=== PATIENT | male | born 1980 | race African-American/Black ===

== ENCOUNTER 2016-12-26 15:46 | Emergency (ER) | payer SELFPAY ==
[~2016-12-26] VITALS: Ht 190.5 cm; Wt 118.1 kg
[2016-12-26] MEDS ORDERED: ALPRAZolam 0.25 MG TABLET PO ONE (17:15)
[2016-12-26 17:21] VITALS: BP 146/97
--- NOTE | 2016-12-26 17:26 | PHYS DOC ---
General Chief Complaint: HYPERTENSION Stated Complaint: HIGH BP Time Seen by MD: 15:48 Source: patient Exam Limitations: no limitations Problems: History of Present Illness Initial Comments Patient is a 36-year-old male who comes to the ED complaining of headache and elevated blood pressure. Patient states that earlier today while talking to his mother on the phone he received bad news text message. The patient does not go into detail but he states this made him very anxious and his mother was trying to calm him down while he was talking with her. He states that he developed a headache and some tingling in his fingers and became concerned about his blood pressure. Patient states he has chronic headaches, he's had recent CT and says there is a " spot" at his right parietal area. He follows with Dr. Paul santos and states today was not the worst headache of his life. He denies any trauma after receiving bad news he said the headache was like a skull Mild to moderate no worsening or relieving factors. There was no photophobia or eye vision changes or focal neurologic deficit, no nausea vomiting or diarrhea. On ED arrival and his pressures are arranging 140s to 160s systolic and he still having intermittent fingers tingling and is hyperventilating and obviously anxious. Timing/Duration: 4-6 hours Severity: moderate Modifying Factors: improves with other Associated Symptoms: headaches, other Allergies: Coded Allergies: No Known Drug Allergies (Unverified , 12/30/13) Past Medical History Medical History: migraines Surgical History: noncontributory, other Family History Significant Family History: no pertinent family hx Social History Smoker: non-smoker Alcohol: none Drugs: none Review of Systems Constitutional: denies chills, denies diaphoresis, denies fever, denies malaise EENTM: denies eye pain, denies blurred vision, denies ear pain, denies nose pain, denies throat pain Respiratory: denies cough, denies shortness of breath, denies wheezing Cardiovascular: denies chest pain, denies palpitations, denies syncope Gastrointestinal: denies abdominal pain, denies nausea, denies vomiting Musculoskeletal: denies back pain, denies neck pain Psychiatric/Neurological: headache, denies numbness, denies paresthesia Hematologic/Lymphatic: denies blood clots, denies easy bleeding, denies easy bruising Physical Exam General Appearance: mild distress (anxious) Eyes: bilateral eye normal inspection, bilateral eye PERRL, bilateral eye EOMI Ear, Nose, Throat: hearing grossly normal, normal ENT inspection, normal pharynx Neck: non-tender, supple Respiratory: normal breath sounds, no respiratory distress Cardiovascular: normal peripheral pulses, regular rate, rhythm Gastrointestinal: non tender, soft Back: no CVA tenderness, no vertebral tenderness Extremities: non-tender, normal inspection Neurologic/Psychiatric: loop tender II-XII nml as tested, no motor/sensory deficits, alert, oriented x 3, other (anxious, cooperative,) Skin: normal color, warm/dry Orders, Labs, Meds I discussed the effects of stress on chronic conditions such as migraines. I discussed anxiety and the patient admits that he used to take Xanax but hasn't taken any in "years." Patient is agreeable to trial of Xanax to see if it resolves symptoms, if not further workup will be indicated. 1721: Patient rechecked, she denies any symptoms stating that the medications haven't worked fully. He has a ride home. I asked if she received was going to affect him in the days upcoming to see if her prescription would be required. Patient states that he is over he denies need for further medication treatment and is requesting discharge. No new or progressive symptoms vital signs are stable patient is asymptomatic and stable for discharge. Symptoms appear to be a combination effect of the patient's underlying anxiety and headaches as well as probable undiagnosed hypertension. The patient agrees to follow-up with his doctor for blood pressure check and further evaluation and treatment as deemed necessary. Departure Time of Disposition: 17:24 Disposition: HOME, SELF-CARE Diagnosis: headache, anxiety, elevated blood pressure Condition: IMPROVED Patient Instructions: Anxiety and Panic Attacks, Qgxx-hc-[id number], General Headache Without Cause, Zczt-in-Zgpt, Hypertension, Qadf-aw-Vfmr Additional Instructions: Rest, no driving or operating machinery tonight while under the influence of sedative medications. Off work tomorrow as needed. Aggressive hydration with Gatorade. Upza-dgl-[id number] Tylenol or ibuprofen as needed. Follow-up with your doctor on Friday for recheck and blood pressure evaluation. Return to ED with new or changing symptoms. PAIGE LEAHY DO Dec 26, 2016 17:26
== END 2016-12-26 17:41 | disposition home or self-care (01) ==
LOC: ER 15:46
DX: R20.0 Anesthesia of skin (principal); R51 Headache; I10 Essential (primary) hypertension; F41.9 Anxiety disorder, unspecified; G43.909 Migraine, unspecified, not intractable, without status migrainosus
CPT/HCPCS: 99283

== ENCOUNTER 2020-09-08 13:29 | Emergency (ER) | payer OTHER ==
[~2020-09-08] VITALS: Ht 190.5 cm; Wt 137.7 kg
[2020-09-08] MEDS ORDERED: diphenhydrAMINE 50 MG/ML VIAL IM ONE (14:15)
[2020-09-08] MEDS ORDERED: KETOROLAC 15 MG/ML VIAL. IM ONE (14:15)
[2020-09-08] MEDS ORDERED: ONDANSETRON ODT 4 MG TAB.RAPDIS PO ONE (14:15)
--- NOTE | 2020-09-08 14:29 | PHYS DOC ---
Past History Past Medical History: No Pertinent History (SHORTY PICKETT APRN) Past Surgical History: Other (SHORTY PICKETT APRN) Alcohol Use: None Drug Use: None (SHORTY PICKETT APRN) General Adult EDM: Chief Complaint: HEADACHE HPI: HPI: Patient is a 40-year-old male who presents with headache. Patient states the pain is worse above his right eye. Patient states he has a history of migraines but does not take any preventative medications. Patient states his first migraine he has had in a while. Patient denies visual changes. Denies taking anything prior to arrival for pain. Denies nausea/vomiting/diarrhea. Denies sensory changes or focal weakness. Patient has history of hypertension and migraines. (SHORTY PICKETT APRN) Review of Systems: Review of Systems: Constitutional: Denies fever or chills Eyes: Denies change in visual acuity HENT: Denies nasal congestion or sore throat Respiratory: Denies cough or shortness of breath Cardiovascular: Denies chest pain or edema GI: Denies abdominal pain, nausea, vomiting, bloody stools or diarrhea : Denies dysuria Musculoskeletal: Denies back pain or joint pain Integument: Denies rash Neurologic: Reports headache, denies focal weakness or sensory changes Endocrine: Denies polyuria or polydipsia Lymphatic: Denies swollen glands Psychiatric: Denies depression or anxiety (SHORTY PICKETT APRN) Current Medications: Current Meds: Current Medications Medications (Trade) Dose Ordered Sig/Merline Start Time Stop Time Status Last Admin Dose Admin Diphenhydramine HCl (Benadryl) 50 mg 1X ONCE 09/08/20 14:15 09/08/20 14:16 Ketorolac Tromethamine (Toradol 15mg Vial) 15 mg 1X ONCE 09/08/20 14:15 09/08/20 14:16 Ondansetron HCl (Zofran Odt) 4 mg 1X ONCE 09/08/20 14:15 09/08/20 14:16 (SHORTY PICKETT APRN) Allergies: Allergies: Allergies Coded Allergies Type Severity Reaction Last Updated Verified No Known Drug Allergies 12/30/13 No (SHORTY PICKETT APRN) Physical Exam: PE: Constitutional: Well developed, well nourished, no acute distress, non-toxic appearance. [] HENT: Normocephalic, atraumatic, bilateral external ears normal, oropharynx moist, no oral exudates, nose normal. [] Eyes: PERRLA, EOMI, conjunctiva normal, no discharge. [] Neck: Normal range of motion, no tenderness, supple, no stridor. [] Cardiovascular:Heart rate regular rhythm, no murmur [] Lungs & Thorax: Bilateral breath sounds clear to auscultation [] Abdomen: Bowel sounds normal, soft, no tenderness, no masses, no pulsatile masses. [] Skin: Warm, dry, no erythema, no rash. [] Back: No tenderness, no CVA tenderness. [] Extremities: No tenderness, no cyanosis, no clubbing, ROM intact, no edema. [] Neurologic: Alert and oriented X 3, normal motor function, normal sensory fu nction, no focal deficits noted. [] Psychologic: Affect normal, judgement normal, mood normal. [] (SHORTY PICKETT APRN) EKG: EKG: [] (SHORTY PICKETT APRN) Radiology/Procedures: Radiology/Procedures: [] (SHORTY PICKETT APRN) Heart Score: C/O Chest Pain: No Risk Factors: Risk Factors: DM, Current or recent (<one month) smoker, HTN, HLP, family history of CAD, obesity. Risk Scores: Score 0 - 3: 2.5% MACE over next 6 weeks - Discharge Home Score 4 - 6: 20.3% MACE over next 6 weeks - Admit for Clinical Observation Score 7 - 10: 72.7% MACE over next 6 weeks - Early Invasive Strategies (SHORTY PICKETT APRN) Course & Med Decision Making: Course & Med Decision Making Pertinent Labs and Imaging studies reviewed. (See chart for details) [] 40-year-old male presents with headache. States he does have a history of migraines but reports this is the first headache he has had any while. Patient denies any sensory changes, denies weakness denies worst headache of his life. Denies thunderclap. Patient is alert and oriented. Patient given Toradol, Benadryl, Zofran. Patient states that his headache has resolved. Patient to make a follow-up appointment with his PCP for further management. Patient is appreciative and okay with discharge plan. (SHORTY PICKETT APRN) Luis Disclaimer: Dragmanuel Disclaimer: This electronic medical record was generated, in whole or in part, using a voice recognition dictation system. (SHORTY PICKETT APRN) Attending Co-Sign The patient was seen and interviewed as well as examined at the bedside. The chart was reviewed. The case was discussed. Agree with the plan of care. (LAVERNE MCKEON DO) Departure Departure: Impression: Primary Impression: Head ache Qualified Codes: R51.9 - Headache, unspecified Disposition: HOME / SELF CARE / HOMELESS Condition: STABLE Referrals: JASMEET MILES MD (PCP) Patient Instructions: General Headache Without Cause, Cjor-ad-Keac Additional Instructions: You are seen in the emergency room for a migraine. You were given Benadryl, Zofran, Toradol for pain. Please call your PCP and make a follow-up appointment for further management. You can take ibuprofen and Tylenol at home for garcia burroughs. Return to the emergency room if you have worsening symptoms or concerns. EMERGENCY DEPARTMENT GENERAL DISCHARGE INSTRUCTIONS Thank you for coming to [facility] (ED) today and trusting us with you care. We trust that you had a positivie experience in our Emergency Department. If you wish to speak to the department management, you may call the director at [phone]. YOUR FOLLOW UP INSTRUCTIONS ARE FOLLOWS: 1. Do you have a private Doctor? If you do not have a private doctor, please ask for a resource list of physicians or clinics that may be able to assist you with follow up care. 2. The Emergency Physician has interpreted your x-rays. The X-Ray specialist will also review them. If there is a change in the findings, you will be notified in 48 hours when at all possible. 3. A lab test or culture has been done, your results will be reviewed and you will be notified if you need a change in treatment. ADDITIONAL INSTRUCTIONS AND INFORMATION: 1. Your care today has been supervised by a physician who is specially trained in emergency care. Many problems require more than one evaluation for a complete diagnosis and treatment. We recommend that you schedule your follow up appointment as recommended to ensure complete treatment of you illness or injury. If you are unable to obtain follow up care and continue to have a problem, or if your condition worsens, we recommend that you return to the ED. 2. We are not able to safely determine your condition over the phone nor are we able to give sound medical advice over the phone. For these safety reasons, if you call for medical advice we will ask you to come to the ED for further evaluation. 3. If you have any questions regarding these discharge instructions please call the ED at [phone]. SAFETY INFORMATION: In the interest of safety, wellness, and injury prevention; we encourage you to wear your sealbelt, if you smoke; quite smoking, and we encourage family to use a protective helmet for bicycling and other sporting events that present an increased risk for head injury. IF YOUR SYMPTOMS WORSEN OR NEW SYMPTOMS DEVELOP, OR YOU HAVE CONCERNS ABOUT YOUR CONDITION; OR IF YOUR CONDITION WORSENS WHILE YOU ARE WAITING FOR YOUR FOLLOW UP APPOINTMENT; EITHER CONTACT YOUR PRIMARY CARE DOCTOR, THE PHYSICIAN WHOSE NAME AND NUMBER YOU WERE GIVEN, OR RETURN TO THE ED IMMEDIATELY. SHORTY PICKETT APRN September 08, 2020 14:29 LAVERNE MCKEON DO September 09, 2020 06:15
[2020-09-08 15:20] VITALS: BP 155/85
== END 2020-09-08 15:20 | disposition home or self-care (01) ==
LOC: ER 13:29
DX: G43.909 Migraine, unspecified, not intractable, without status migrainosus (principal)
CPT/HCPCS: 96372; 99283; J1200; J1885; Q0162

== ENCOUNTER 2021-02-21 16:22 | Emergency (ER) | payer SELFPAY ==
[~2021-02-21] VITALS: Ht 190.5 cm; Wt 139.0 kg
[2021-02-21 16:52] VITALS: BP 149/92
[2021-02-21] MEDS ORDERED: AMOX1TAB61 PO (17:26)
[2021-02-21] MEDS ORDERED: BUTA1TAB23 PO (17:26)
[2021-02-21] MEDS ORDERED: ONDA4TAB12 PO (17:26)
--- NOTE | 2021-02-21 17:27 | PHYS DOC ---
Past History Past Medical History: No Pertinent History, Hypertension Past Surgical History: No Surgical History Smoking: Non-smoker Alcohol Use: None Drug Use: None General Adult EDM: Chief Complaint: FEVER HPI: HPI: 41-year-old male presents with report of headache, body aches, and fever x 4-5 days. Patient reports initially started with nasal congestion. Patient reports concerned that he might have developed some sinusitis. Patient reports symptoms did start shortly after receiving first COVID Pfizer vaccination last Friday. Patient denies known exposure to COVID-19. Patient does report some sore throat and cough. Reports sensation that he is having phlegm drip down the back of his throat. Review of Systems: Review of Systems: Constitutional: Reports subjective fever and chills Eyes: Denies redness or eye pain HENT: Reports nasal congestion and sore throat Respiratory: Reports cough; denies shortness of breath Cardiovascular: Denies chest pain or palpitations GI: Denies abdominal pain or vomiting; reports nausea : Denies dysuria or hematuria Musculoskeletal: Denies back pain or neck pain Integument: Denies rash or skin lesions Neurologic: Reports headache; denies focal weakness or sensory changes Complete systems were reviewed and found to be within normal limits, except as documented in this note. Current Medications: Current Meds: Current Medications Medications (Trade) Dose Ordered Sig/Merline Start Time Stop Time Status Last Admin Dose Admin Acetaminophen/ Butalbital/ Caffeine (Fioricet) 1 tab 1X ONCE 02/21/21 17:15 02/21/21 17:16 UNV Ondansetron HCl (Zofran Odt) 4 mg 1X ONCE 02/21/21 17:15 02/21/21 17:16 UNV Allergies: Allergies: Allergies Coded Allergies Type Severity Reaction Last Updated Verified No Known Drug Allergies 12/30/13 No Physical Exam: PE: Constitutional: Well developed, well nourished, no acute distress, non-toxic appearance HENT: Normocephalic, atraumatic Eyes: Conjunctiva normal, no discharge Neck: Normal range of motion, no tenderness, supple, no meningeal signs Lungs & Thorax: No respiratory distress, equal chest rise and fall Abdomen: Soft, no tenderness Skin: Warm, dry, no erythema, no rash Extremities: No tenderness, ROM intact, no edema Neurologic: Alert and oriented X 3, no focal deficits noted Psychologic: Affect normal, judgment normal Current Patient Data: Vital Signs: Vital Signs Date Time Temp Pulse Resp B/P (MAP) Pulse Ox O2 Delivery O2 Flow Rate FiO2 02/21/21 16:52 100.3 96 16 149/92 (111) 97 EKG: EKG: [] Radiology/Procedures: Radiology/Procedures: [] Heart Score: C/O Chest Pain: N/A Course & Med Decision Making: Course & Med Decision Making Pertinent Lab studies reviewed. (See chart for details) Patient presents with URI type symptoms x 4 to 5 days. Patient reports initially concerned that he might have exacerbation of his chronic sinusitis. Patient reports subjective fever and chills. Complicated that patient recently received first dose of Taketake COVID-19 vaccination on Friday. Symptomatic treatment provided. Fever addressed. Cannot fully exclude COVID-19 infection. Covid testing therefore obtained and pending. Patient stable for discharge with outpatient follow-up with PCP. Will prescribe empiric antibiotics with instruction to watch and wait 48 hours prior to initiation of antibiotics if symptoms continue or worsen. Discussed findings and plan with patient, who acknowledges understanding and agreement. COVID-19 CRITERIA: The patient was evaluated during the global COVID-19 pandemic, and that diagnosis was suspected/considered upon their initial presentation. Their evaluation, treatment and testing was consistent with current guidelines for patients who present with complaints or symptoms that may be related to COVID-19. Luis Disclaimer: Luis Disclaimer: This electronic medical record was generated, in whole or in part, using a voice recognition dictation system. Departure Departure: Impression: Primary Impression: Sinusitis Qualified Codes: J01.00 - Acute maxillary sinusitis, unspecified Additional Impression: Fever Qualified Codes: R50.9 - Fever, unspecified Disposition: 01 HOME / SELF CARE / HOMELESS Condition: STABLE Referrals: JASMEET MILES MD (PCP) Patient Instructions: Fever, Adult, Qvld-bw-Icos, Sinusitis, Vjov-cv-Zhcu, Viral Syndrome Additional Instructions: Hold antibiotics for 48 hours. If symptoms worsen or for fever > 100.3 F after 48 hours then start antibiotics as prescribed. You have been tested for or diagnosed with COVID-19. It is an infection caused by a new type of coronavirus. COVID-19 will cause cold-like or mild flu symptoms in most. It can cause more severe symptoms like problems breathing in some. There is no treatment for COVID-19. The body will clear the infection over time. Self-care will help to ease discomfort. Steps to Take: Self-Care Rest as needed. Healthy habits may help you feel better. Steps include: Choose healthy foods including fruits and vegetables. Drink water throughout the day. Get plenty of sleep each night. If you smoke, try to quit. It may ease breathing. Avoid alcohol. Keep Others Healthy The virus can spread to others. Droplets are released every time you sneeze or cough. The droplets can get into the mouth, nose, or eyes of people near you and lead to infection. To lower the chances of spreading COVID-19 to others: Stay at home until your doctor has said it is safe to leave. If you tested positive this will mean staying isolated until both of the following are true: At least 7 days have passed since the start of illness. You are free of fever for at least 72 hours without the use of medicine. During this time: - Avoid public areas, events, or transportation. Do not return to work or school until your doctor has said it is safe to do so. - Call ahead if you need to go to a medical center. Let them know you may have COVID-19. It will help them guide you where to go. They may also ask you to wear a facemask when you come to the office. - If you call for emergency medical services, let them know you may have COVID- 19. While at home: - Try to avoid close contact with others. Stay about 6 feet away. - If possible, spend most of your time in a separate room from others. - Use a face mask if you will be in close contact with others such as sharing a room or vehicle. - Have someone wipe down common surfaces in the home. Use household an/syq 13 nav/c2 operator every day on areas like doorknobs, counters, or sinks. - Cough or sneeze into a tissue. Throw the tissue away right after use. If a tissue is not available, cough or sneeze into your elbow. - Wash your hands often. Wash them after sneezing or coughing. Use soap and water and wash for at least 20 seconds. Alcohol based hand char dust cleaner and salvager can be used if soap and water is not available. - Do not prepare food for others. Avoid sharing personal items like forks, spoons, or toothbrushes. - Avoid close contact with pets while you are sick. There is no evidence of the virus passing to pets. This is a safety step until more is known about this virus. Isolation can be frustrating. Social interaction can help. Keep in touch with friends and family through phone and tech options. You can still interact with others in your home, just keep a safe distance of about 6 feet. Follow-up: Your doctors office will check in with you to see if there are any changes in your health. You may be asked to keep track of symptoms to share with them. They will also let you know when you are clear to be in public again. Problems to Look Out For: Contact your doctor if your recovery is not going as you expect. Get emergency care if you have problems such as: - Trouble breathing - Nonstop chest pain or pressure - Changes in awareness, confusion, or problems waking - Lips or face have bluish color - Worsening of symptoms If you think you have an emergency, call for emergency medical services right away. As taken from [employer] [facility] Amoxicillin/Potassium Clav (AUGMENTIN 875-125 TABLET) 1 Each Tablet 1 TAB PO BID for Sinusitis for 7 Days, #14 TAB 0 Refills Prov: JESUS MOURA DO 02/21/21 Ondansetron (ONDANSETRON ODT) 4 Mg Tab.rapdis 1 TAB PO PRN Q6-8HRS PRN for NAUSEA, #16 TAB Prov: JESUS MOURA DO 02/21/21 Butalb/Acetaminophen/Caffeine ([id number] 50-325-40) 1 Each Tablet 1 EACH PO Q6HRS PRN for HEADACHE, #14 TAB Prov: JESUS MOURA DO 02/21/21 COVID-19 Assessment COVID-19 Patient Risks: Age 65 or older: No Sign of co-morbidity: No Exp to person + for COVID: No Exp to PUI: No Travel from affected area: No Lower respiratory symptoms: No Fever: Yes Other: Yes PPE Use: Full PPE with N95 mask or PAPR: Yes JESUS MOURA DO Feb 21, 2021 17:27
[2021-02-21] MEDS: ONDANSETRON ODT 4 MG TAB.RAPDIS PO ONE (17:34)
[2021-02-21] MEDS: BUTALB/APAP/CAFEIN 50/325/40MG TABLET. PO ONE (17:34)
[2021-02-21] MEDS: DEXAMETHASONE 4 MG TABLET PO ONE (17:34)
== END 2021-02-21 17:42 | disposition home or self-care (01) ==
LOC: ER 16:22
DX: J01.00 Acute maxillary sinusitis, unspecified (principal); I10 Essential (primary) hypertension; Z20.822 Contact with and (suspected) exposure to COVID-19
CPT/HCPCS: 99284; C9803; J8540; Q0162; U0003

== ENCOUNTER 2021-02-26 16:09 | Emergency (ER) | payer SELFPAY ==
[~2021-02-26] VITALS: Ht 190.5 cm; Wt 139.0 kg
[~2021-02-26 16:09] MED LIST: AMOX1TAB61 PO; BUTA1TAB23 PO; ONDA4TAB12 PO
--- NOTE | 2021-02-26 16:35 | PHYS DOC ---
Past History Past Medical History: No Pertinent History, Hypertension Past Surgical History: No Surgical History Smoking: Non-smoker Alcohol Use: None Drug Use: None General Adult EDM: Chief Complaint: SHORTNESS OF BREATH HPI: HPI: 41-year-old male returns the emergency room with shortness of breath and right- sided chest pain. The patient was vaccinated with his first COVID-19 vaccine on the fifth of this month. He was diagnosed as Covid + about 5 days later. He continues to have shortness of breath and now has some right-sided chest discomfort. He is feeling much more winded today so he thought he should come back to the emergency room. He has no history of DVT, PE, cardiac disease. Denies fever or chills at home. Review of Systems: Review of Systems: Constitutional: Denies fever or chills Eyes: Denies change in visual acuity HENT: Denies nasal congestion or sore throat Respiratory: shortness of breath Cardiovascular: Right-sided chest pain GI: Denies abdominal pain, nausea, vomiting, bloody stools or diarrhea : Denies dysuria Musculoskeletal: Denies back pain or joint pain Integument: Denies rash Neurologic: Denies headache, focal weakness or sensory changes Endocrine: Denies polyuria or polydipsia Lymphatic: Denies swollen glands Psychiatric: Denies depression or anxiety Allergies: Allergies: Allergies Coded Allergies Type Severity Reaction Last Updated Verified No Known Drug Allergies 12/30/13 No Physical Exam: PE: Constitutional: Well developed, well nourished, no acute distress, non-toxic appearance. [] HENT: Normocephalic, atraumatic, bilateral external ears normal, oropharynx moist, no oral exudates, nose normal. [] Eyes: PERRLA, EOMI, conjunctiva normal, no discharge. [] Neck: Normal range of motion, no tenderness, supple, no stridor. [] Cardiovascular:Heart rate 96, regular rhythm, no murmur [] Lungs & Thorax: Bilateral breath sounds diminished [] Abdomen: Bowel sounds normal, soft, no tenderness, no masses, no pulsatile masses. [] Skin: Warm, dry, no erythema, no rash. [] Back: No tenderness, no CVA tenderness. [] Extremities: No tenderness, no cyanosis, no clubbing, ROM intact, no edema. [] Neurologic: Alert and oriented X 3, normal motor function, normal sensory function, no focal deficits noted. [] Psychologic: Affect normal, judgement normal, mood normal. [] EKG: EKG: Sinus rhythm, rate 93, normal axis, no ST elevation or depression. [] Radiology/Procedures: Radiology/Procedures: [] Impressions: EXAM: CHEST 1 VIEW History: Shortness of breath COMPARISON: 12/30/2013. TECHNIQUE: Single portable radiograph of the chest FINDINGS: The cardiac silhouette is unremarkable. Mild bibasilar lung airspace opacities likely atelectasis or infiltrates. The costophrenic sulci are clear and well demarcated. IMPRESSION: Mild bibasilar lung airspace opacities likely atelectasis or infil trates. Electronically signed by: Juan Jose Mitchell MD (02/26/2021 4:43 PM) [id number] DICTATED AND SIGNED BY: JUAN JOSE MITCHELL MD DATE: 02/26/21 1640 CC: LAVERNE MCKEON DO; JASMEET MILES MD ~MTH0 0 Heart Score: C/O Chest Pain: Yes HEART Score for Chest Pain: HEART Score for Chest Pain Response (Comments) Value History Slighlty/Non-Suspicious 0 ECG Normal 0 Age < 45 0 Risk Factors 1 or 2 Risk Factors 1 Troponin < Normal Limit 0 Total 1 Risk Factors: Risk Factors: DM, Current or recent (<one month) smoker, HTN, HLP, family history of CAD, obesity. Risk Scores: Score 0 - 3: 2.5% MACE over next 6 weeks - Discharge Home Score 4 - 6: 20.3% MACE over next 6 weeks - Admit for Clinical Observation Score 7 - 10: 72.7% MACE over next 6 weeks - Early Invasive Strategies Course & Med Decision Making: Course & Med Decision Making Pertinent Labs and Imaging studies reviewed. (See chart for details) The patient's labs are unremarkable. His EKG is unremarkable. His chest x-ray shows bilateral pneumonia. Have ordered a CT angio of the chest. The patient does not have a pulmonary embolus. It does confirm bilateral atypical pneumonia. The patient is already been treated with an antibiotic so no new antibiotic is indicated. His oxygen saturation was 88-89%. He was on supplemental oxygen for a while. He has now noncompliant 95% on room air. I will give the patient pain medication for his chest wall discomfort. He is stable for discharge at this time. [] Dragon Disclaimer: Dragon Disclaimer: This electronic medical record was generated, in whole or in part, using a voice recognition dictation system. Departure Departure: Impression: Primary Impression: COVID-19 Disposition: HOME / SELF CARE / HOMELESS Condition: STABLE Referrals: JASMEET MILES MD (PCP) Patient Instructions: Pneumonia, Adult, [id number] Scripts Hydrocodone/Acetaminophen (Hydrocodone-Acetamin 5-325 mg) 1 Each Tablet 1 EACH PO Q4-6HRS PRN for PAIN, #10 TAB Prov: LAVERNE MCKEON DO 02/26/21 LAVERNE MCKEON DO Feb 26, 2021 16:35
--- NOTE | 2021-02-26 16:46 | RAD ---
EXAM: CHEST 1 VIEW History: Shortness of breath COMPARISON: 12/30/2013. TECHNIQUE: Single portable radiograph of the chest FINDINGS: The cardiac silhouette is unremarkable. Mild bibasilar lung airspace opacities likely atel ectasis or infiltrates. The costophrenic sulci are clear and well demarcated. IMPRESSION: Mild bibasilar lung airspace opacities likely atelectasis or infiltrates. Electronically signed by: Juan Jose Mitchell MD (02/26/2021 4:43 PM) [id number]
[2021-02-26] MEDS ORDERED: IOHEXOL 350 MG/ML 100 ML VIAL. IV ONE (17:00)
--- NOTE | 2021-02-26 17:00 | EKG ---
[address] [address] Test Date: 2021-02-26 Test Time: 16:54:36 Pat Name: BART VARGHESE Department: Room: Gender: M Hospital Receiving Clerk: DONALD : 1980 Requested By: LAVERNE MCKEON Order Number: [id number] Reading MD: August Moss Measurements Intervals [place] Rate: 93 P: 31 MO: 168 QRS: 17 QRSD: 76 T: 19 QT: 312 QTc: 390 Interpretive Statements SINUS RHYTHM NORMAL ECG RI6.02 Compared to ECG 12/30/2013 14:18:30 No significant changes Electronically Signed On 02-27-2021 14:21:34 [employer] by August Moss
[2021-02-26 17:20] LABS: BASO % 0 % (0-3); EOS % 0 % (0-3); HEMATOCRIT 41.7 % (39.0-53.0); HEMOGLOBIN 13.8 g/dL (13.0-17.5); LYMPH # 1.3 x10^3/uL (1.0-4.8); LYMPH % 16 % (24-48); MEAN CORPUSCULAR HEMOGLOBIN 28 pg (25-35); MEAN CORPUSCULAR HGB CONC 33 g/dL (31-37); MEAN CORPUSCULAR VOLUME 85 fL (79-100); MONO # 0.6 x10^3/uL (0.0-1.1); MONO % 7 % (0-9); NEUT # 6.1 x10^3uL (1.8-7.7); NEUT % 77 % (31-73); PLATELET COUNT 183 x10^3/uL (140-400); RED BLOOD COUNT 4.89 x10^6/uL (4.30-5.70); RED CELL DISTRIBUTION WIDTH 13.6 % (11.5-14.5)
[2021-02-26 17:41] LABS: CALCIUM 8.4 mg/dL (8.5-10.1); CREATININE 1.2 mg/dL (0.7-1.3); GFR 80.3; POTASSIUM 4.7 mmol/L (3.5-5.1)
--- NOTE | 2021-02-26 17:41 | RAD ---
EXAM: CT ANGIOGRAPHY OF THE CHEST WITH AND WITHOUT CONTRAST. HISTORY: Shortness of breath, COVID-19. TECHNIQUE: Computed tomographic angiography of the chest was performed before and after the intraveno us administration of iodinated contrast. 3-D maximum intensity projections were also performed. One o r more of the following individualized dose reduction techniques were utilized for this examination: 1. Automated exposure control. 2. Adjustment of the mA and/or kV according to patient size. 3. Use of iterative reconstruction technique. COMPARISON: 12/30/2013. FINDINGS: Images of the upper abdomen reveal no acute abnormality. Bone windows reveal no suspicious lesions. No pulmonary emboli are identified. There is no aortic dissection or aneurysm. Prominent right hilar lymph node measures 1.5 x 1.0 cm. This and other scattered small mediastinal ly mph nodes are likely reactive in this setting. There is no pleural or pericardial effusion. The heart is not enlarged. Predominantly subpleural and peripheral groundglass infiltrates involve all lobes. IMPRESSION: 1. No pulmonary embolism. 2. Bilateral infiltrates consistent with atypical pneumonia. Electronically signed by: Dean Douglas MD (02/26/2021 5:38 PM) [facility]
[2021-02-26 17:44] LABS: ALBUMIN/GLOBULIN RATIO 0.8 (1.0-1.7); TOTAL BILIRUBIN 0.4 mg/dL (0.2-1.0); TOTAL PROTEIN 6.6 g/dL (6.4-8.2)
[2021-02-26] MEDS ORDERED: HYDR-2759 PO (17:54)
[2021-02-26] MEDS ORDERED: ALBUTEROL SULFATE 8GM INHALER. INH ONE (18:00)
[2021-02-26] MEDS ORDERED: HYDROcodone/APAP 5/325MG 1 TAB TABLET PO ONE (18:00)
[2021-02-26 18:21] VITALS: BP 147/60
== END 2021-02-26 18:23 | disposition home or self-care (01) ==
LOC: ER 16:09
DX: U07.1 COVID-19 (principal); I10 Essential (primary) hypertension
CPT/HCPCS: 36415; 71045; 71275; 80053; 84484; 85025; 93005; 94640; 99285; Q9967; 94664